=== PATIENT | female | born 1995 ===

== ENCOUNTER 2023-10-06 10:28 | Outpatient (CLI) | payer OTHER ==
[2023-10-06 11:20] LABS: HEMATOCRIT 40.8 % (36.0-45.00); HEMOGLOBIN 13.8 g/dL (12.0-15.00); MEAN CELL VOLUME 83.5 fL (80.00-100.00); MEAN CORPUSCULAR HEMOGLOBIN 28.2 pg (27.00-32.0); MEAN CORPUSCULAR HGB CONC 33.8 g/dl (32.0-36.0); PLATELET COUNT 339 K/uL (150-450); RED BLOOD COUNT 4.89 M/uL (4.00-6.00); RED CELL DISTRIBUTION WIDTH 15.1 % (11.5-14.5)
[2023-10-06 11:28] LABS: URINE APPEARANCE Clear; URINE BILIRRUBIN Negative (NEGATIVE); URINE BLOOD Negative; URINE COLOR Yellow; URINE GLUCOSE Negative (NEGATIVE); URINE KETONE Trace (NEGATIVE); URINE LEUKOCYTE Negative; URINE NITRATE Negative; URINE PROTEIN Negative (NEGATIVE)
[2023-10-06 11:29] LABS: URINE BACTERIA 835.3 uL (0.0-1933); URINE EPITHELIAL CELLS 19.5 uL (0.0-38.8); URINE RBC 5.3 uL (0.0-20.8); URINE WBC 2.7 uL (0.0-23.2)
[2023-10-06 12:02] LABS: ALBUMIN 3.7 gm/dL (3.4-5.0); ALKALINE PHOSPHATASE 82 U/L (50-136); ALT/SGPT 94 U/L (12-78); ANION GAP 9 (10.0-20.0); AST/SGOT 62 U/L (15-37); BILIRUBIN TOTAL 0.71 mg/dL (0.3-1.2); BLOOD UREA NITROGEN 11 mg/dL (7-18); BUN CREA RATIO 14 (7.0-25.0); CALCIUM 8.9 mg/dL (8.5-10.1); CARBON DIOXIDE 28 mEq/L (21-32); CHLORIDE 109 mmol/L (98-107); CHOL HDL RATIO 4.1 (0-5.0); CHOLESTEROL 195 mg/dL (0-200); CREATININE SERUM 0.76 mg/dL (0.55-1.02); GFR 89.36; GLOBULINA 3.4 G/DL (2.4-3.5); GLUCOSE FASTING 89 mg/dL (65-100); HDL 47 mg/dl (40-60); LDL 120 mg/dl (0-130); OSMOLALITY SERUM 280 MOSM/KG (275-295); POTASSIUM 4.51 mEq/L (3.5-5.1); SODIUM 141 mmol/L (136-145); T4 FREE 1.06 NG/ML (0.76-1.46); TOTAL PROTEIN 7.1 gm/dL (6.4-8.2); TRIGLYCERIDES 139 mg/dL (0-150); VLDL 27 (0-39)
[2023-10-06 12:03] LABS: HCG QUANTITATIVE < 1 mUI/mL (1-3)
[2023-10-08 09:08] LABS: FOLLICLE STIMULATING HORMONE 4.6 mIU/mL (.); LEUTEINIZING HORMONE 9.4 mIU/mL (.); PROGESTERONA 0.1 ng/mL (.); PROLACTIN 8.2 ng/mL (4.8-33.4)
[2023-10-09 17:11] LABS: T T 58 ng/dL (13-71); test free 3.1 pg/mL (0.0-4.2)
== END 2023-10-06 10:29 | disposition home or self-care (01) ==
LOC: LAB 10:28
PROVIDERS: ATTEND Obstetrics & Gynecology
DX: I10 Essential (primary) hypertension (principal); E03.9 Hypothyroidism, unspecified; N91.0 Primary amenorrhea; E55.9 Vitamin D deficiency, unspecified; Z21 Asymptomatic human immunodeficiency virus [HIV] infection status; R79.9 Abnormal finding of blood chemistry, unspecified; R79.89 Other specified abnormal findings of blood chemistry; Z00.00 Encounter for general adult medical examination without abnormal findings